=== PATIENT | male | born 1980 | race African-American/Black ===

== ENCOUNTER 2025-02-07 23:59 | Emergency (ER) | payer SELFPAY ==
[~2025-02-07] VITALS: Ht 180.3 cm; Wt 93.0 kg
[2025-02-08 01:13] VITALS: BP 133/74; TEMP 98.4; O2SAT 98
[2025-02-08] MEDS ORDERED: NAPR-1009 PO (02:47)
[2025-02-08] MEDS ORDERED: HYDROCODONE/APAP 10/325MG TABLET PO ONE (03:00)
== END 2025-02-08 02:51 | disposition home or self-care (01) ==
LOC: ER 02-08 00:04
DX: S63.592A Other specified sprain of left wrist, initial encounter (principal); S60.512A Abrasion of left hand, initial encounter; M25.532 Pain in left wrist; M79.642 Pain in left hand; R20.0 Anesthesia of skin; Z60.2 Problems related to living alone; X58.XXXA Exposure to other specified factors, initial encounter; Y93.89 Activity, other specified; Y92.89 Other specified places as the place of occurrence of the external cause; Y99.8 Other external cause status
CPT/HCPCS: 73110; 73130-TC